=== PATIENT | male | born 1965 | race Caucasian/White ===

== ENCOUNTER 2023-03-14 18:13 | Emergency (ER) | payer OTHER | END 2023-03-14 19:02 | disposition home or self-care (01) | LOC: CSHERS 18:13 | DX: L25.9 Unspecified contact dermatitis, unspecified cause (principal); E11.9 Type 2 diabetes mellitus without complications; I10 Essential (primary) hypertension | CPT/HCPCS: 99282 ==

== ENCOUNTER 2023-12-25 15:04 | Emergency (ER) | payer OTHER | END 2023-12-25 16:15 | disposition home or self-care (01) | LOC: CSHERS 15:04 | DX: L25.9 Unspecified contact dermatitis, unspecified cause (principal); T54.3X1A Toxic effect of corrosive alkalis and alkali-like substances, accidental (unintentional), initial encounter | CPT/HCPCS: 99282 ==